=== PATIENT | female | born 1955 | race Caucasian/White ===

== ENCOUNTER 2017-03-20 07:13 | Emergency (ER) | payer OTHER ==
[~2017-03-20] VITALS: Ht 167.6 cm; Wt 61.3 kg
[2017-03-20] MEDS ORDERED: NORCO, ANEXSIA 5/325MG TABLET (HYDROcodone/ACETAMINOPHEN) PO ONE (09:00)
[2017-03-20] MEDS ORDERED: ONDANSETRON 4 MG ORAL DISINTEGRATING TAB (S0181) PO ONE (09:00)
[2017-03-20] MEDS ORDERED: KEFL500C17 PO (10:21)
[2017-03-20] MEDS ORDERED: PRED20TA PO (10:21)
[2017-03-20 10:26] VITALS: BP 123/71
== END 2017-03-20 11:48 | disposition home or self-care (01) ==
LOC: M ED 07:13
DX: L30.9 Dermatitis, unspecified (principal); L03.115 Cellulitis of right lower limb; L03.116 Cellulitis of left lower limb; L40.9 Psoriasis, unspecified; Z88.5 Allergy status to narcotic agent

== ENCOUNTER 2018-03-28 11:09 | Emergency (ER) | payer OTHER ==
[2018-03-28] MEDS: IBUPROFEN 600 MG TAB PO (12:02)
== END 2018-03-28 13:30 | disposition home or self-care (01) ==
LOC: M ED 11:09
DX: M25.462 Effusion, left knee (principal); F33.9 Major depressive disorder, recurrent, unspecified; Z88.5 Allergy status to narcotic agent
CPT/HCPCS: 73564

== ENCOUNTER 2019-08-13 14:57 | Inpatient (IN) | payer OTHER ==
[~2019-08-13] VITALS: Ht 167.6 cm; Wt 90.0 kg
[~2019-08-13 14:57] MED LIST: IBUP-1022 PO; KEFL500C17 PO; PRED20TA PO
[2019-08-13] MEDS ORDERED: CLOB0.0548 PO (15:07)
[2019-08-13 17:21] LABS: MEAN CORPUSCULAR HEMOGLOBIN 26.5 pg (27.0-33.0); MEAN CORPUSCULAR HGB CONC 30.3 g/dl (32.0-36.5); MEAN CORPUSCULAR VOLUME 87.5 fl (80.0-96.0); PLATELET COUNT, AUTOMATED 466 10^3/uL (150-450); RED BLOOD COUNT 3.77 10^6/uL (4.00-5.40); WHITE BLOOD COUNT 9.2 10^3/uL (4.0-10.0)
[2019-08-13 17:42] LABS: ERYTHROCYTE SEDIMENTATION RATE 101 mm/hr (0-30)
[2019-08-13 17:44] LABS: ALBUMIN 2.9 GM/DL (3.2-5.2); ALT/SGPT 16 U/L (12-78); BILIRUBIN,TOTAL < 0.1 MG/DL (0.2-1.0); BLOOD UREA NITROGEN 24 MG/DL (7-18); C REACTIVE PROTEIN QUANTITATIV 2.47 MG/DL (0.00-0.30); CALCIUM LEVEL 9.2 MG/DL (8.8-10.2); CARBON DIOXIDE LEVEL 28 MEQ/L (21-32); CHLORIDE LEVEL 109 MEQ/L (98-107); CREATININE FOR GFR 0.72 MG/DL (0.55-1.30); GLOMERULAR FILTRATION RATE > 60.0 (>45); GLUCOSE, FASTING 89 MG/DL (70-100); RHEUMATOID FACTOR QUANT 26.9 IU/ML (<15.0); SODIUM LEVEL 139 MEQ/L (136-145); TOTAL PROTEIN 7.5 GM/DL (6.4-8.2)
[2019-08-13] MEDS ORDERED: PIPERACILLIN/TAZOBACTAM SOD 3.375 GM in D5W MINI-BAG PLUS 50 ML IV ONE (18:15)
--- NOTE | 2019-08-13 19:39 | HPEPDOC ---
[facility] Medical History & Physical Date of Admission Aug 13, 2019 Date of Service: Aug 13, 2019 Attending Physician: FREEDOM KAM MD History and Physical TIME OF SERVICE: 8:24 PM CHIEF COMPLAINT: Sent from safety patrol officer office HISTORY OF PRESENT ILLNESS: This is 63-year-old female that was sent from her safety patrol officer office for management of pyoderma of the lower extremities; maggots were observed infesting the wounds the office. The patient denies having nausea, vomiting, fevers or chills. REVIEW OF SYSTEMS: 12 point review of systems negative except as listed in HPI PAST MEDICAL/ SURGICAL HISTORY: Eczema Psoriasis Anxiety Depression Surgery Tonsillectomy SOCIAL HISTORY: She does not smoke FAMILY HISTORY: There is a family history of psychiatric problems ALLERGIES: Please see below. HOME MEDICATIONS: Please see below. PHYSICAL EXAMINATION: VITAL SIGNS: Please see below. GEN: well-nourished / well developed/ NAD INTEGUMENT: both lower extremities are wrapped in dressings / the wounds are foul-smelling / her toenails are very long HEENT: mucus membranes moist and pink CVS: RRR/NMRG/ she has bilateral lower extremity edema LUNGS: lungs are clear to auscultation bilaterally on room air ABDOMEN: soft & not tender with palpation NEURO: CN 2-12 are grossly intact / speech is not dysarthric PSYCH: alert and oriented / able to understand and follow all command LABORATORY DATA: See below. MICROBIOLOGY: Please see below. ASSESSMENT: Ms. Bermeo is a 63-year-old female with a history of anxiety, depression, eczema & psoriasis, who is admitted for management of BLE pyoderma. PLAN: 1. Pyoderma of both lower extremities. This possible that her psoriasis predisposing her to this condition. Per discussion with the FUEL HOUSE ATTENDANT maggots were not visualized here. Plan: Admit to medical floor/switch from topical clobetasol to IV steroids/continue Zosyn /metronidazole cream to reduce odor associated with wounds/ follow up blood and wound cultures / dermatology & wound care consults in the morning /she is on contact precautions for now, if maggots are found they should be sent to the pathology lab for analysis 2. Tachycardia, likely due to dehydration. Her potassium is within normal limits. - Plan: IV fluids / follow-up magnesium 3. Normocytic anemia. Likely due to anemia of chronic disease. - Plan: Follow-up reticulocyte count and iron panel 4. Eczema/psoriasis. - Plan follow-up with dermatology 5. Obesity with BMI 31.5 of [facility] care. - Plan: f/u A1C/ she can f/u w PCP for STOP BANG questionnaire & director of slot operations consult DVT PROPHYLAXIS: Heparin DISPOSITION: Home with home RN vs placement after more than 2 midnight's stay Vital Signs Vital Signs Date Time Temp Pulse Resp B/P (MAP) Pulse Ox O2 Delivery O2 Flow Rate FiO2 08/13/19 18:46 112 157/103 (121) 98 08/13/19 14:57 98.9 20 Room Air Laboratory Data Labs 24H Laboratory Tests 2 08/13/19 17:00: Nucleated Red Blood Cells % (auto) 0.0, Erythrocyte Sedimentation Rate 101H, Anion Gap 2L, Glomerular Filtration Rate > 60.0, Calcium Level 9.2, Total Bilirubin < 0.1L, Aspartate Amino Transf (AST/SGOT) 17, Alanine Aminotransferase (ALT/SGPT) 16, Alkaline Phosphatase 75, C-Reactive Protein, Quantitative 2.47H, Total Protein 7.5, Total Protein (PEP) 7.5, Albumin 2.9L, Albumin/Globulin Ratio 0.63L, Rheumatoid Factor 26.9H CBC/BMP Laboratory Tests 08/13/19 17:00 Microbiology Microbiology 08/13/19 Blood Culture, Received Pending 08/13/19 Blood Culture, Received Pending Home Medications Scheduled Clobetasol Propionate/Emoll (Clobetasol Emollient 0.05% Crm) 0.05% 15GM Cream..g., 1 APPLIC PO BID APPLY TO LEGS Allergies Coded Allergies: codeine (Verified Adverse Reaction, Mild, VOMITS, 08/13/19) A-FIB/CHADSVASC A-FIB History Current/History of A-Fib/PAF?: No Current PO Anticoag Therapy: No FREEDOM KAM MD Aug 13, 2019 19:39
[2019-08-13] MEDS ORDERED: MAALOX 30 ML SUSP *UDC PO PRN (19:45)
[2019-08-13] MEDS ORDERED: methylPREDNISolone INJ 125 MG/2 ML VIAL (J2930) IV ONE (19:45)
[2019-08-13] MEDS ORDERED: MOM 30ML SUSPENSION UDC PO PRN (19:45)
[2019-08-13] MEDS: ACETAMINOPHEN TAB 650MG DOSE (2X325MG) PO PRN (20:36)
[2019-08-13 21:12] VITALS: BP 155/89
[2019-08-13] MEDS: DOCUSATE SODIUM 100 MG CAP PO SCH (22:16)
[2019-08-14] VITALS (7 sets, daily range): BP systolic 123–155; BP diastolic 64–94
[2019-08-14] MEDS: PIPERACILLIN/TAZOBACTAM SOD 3.375 GM in D5W MINI-BAG PLUS 50 ML IV SCH ×3 (00:52→17:12)
[2019-08-14] MEDS: NS 1,000 ML IV SCH ×2 (03:46→13:47)
[2019-08-14] MEDS: HEPARIN SOD (PORCINE) 5000 UNITS/ML VIAL (J1644 PER 1000UNITS) SC SCH ×3 (05:31→21:40)
[2019-08-14 06:34] LABS: HEMATOCRIT 31.8 % (36.0-47.0); HEMOGLOBIN 9.7 g/dl (12.0-15.5); MEAN CORPUSCULAR HEMOGLOBIN 26.3 pg (27.0-33.0); MEAN CORPUSCULAR HGB CONC 30.5 g/dl (32.0-36.5); MEAN CORPUSCULAR VOLUME 86.2 fl (80.0-96.0); PLATELET COUNT, AUTOMATED 406 10^3/uL (150-450); RED BLOOD COUNT 3.69 10^6/uL (4.00-5.40); WHITE BLOOD COUNT 8.2 10^3/uL (4.0-10.0)
[2019-08-14 06:48] LABS: HEMOGLOBIN A1c 5.6 %
[2019-08-14 07:00] LABS: BLOOD UREA NITROGEN 18 MG/DL (7-18); CARBON DIOXIDE LEVEL 26 MEQ/L (21-32); CHLORIDE LEVEL 108 MEQ/L (98-107); CREATININE FOR GFR 0.78 MG/DL (0.55-1.30); FERRITIN 9 NG/ML (8-252); GLOMERULAR FILTRATION RATE > 60.0 (>45); GLUCOSE, FASTING 146 MG/DL (70-100); IRON (FE) 14 UG/DL (50-170); PERCENT SATURATION 3.9 % (13.2-45.0); POTASSIUM SERUM 3.9 MEQ/L (3.5-5.1); SODIUM LEVEL 140 MEQ/L (136-145); TOTAL IRON BINDING CAPACITY 362 UG/DL (250-450)
[2019-08-14] MEDS ORDERED: methylPREDNISolone INJ 125 MG/2 ML VIAL (J2930) IV SCH (09:00)
[2019-08-14] MEDS ORDERED: methylPREDNISolone 1,000 MG, VIAL MATE ADAPTER 1 EACH in D5W 250 ML IV SCH (09:00)
[2019-08-14] MEDS: DOCUSATE SODIUM 100 MG CAP PO SCH ×2 (09:21→21:00)
[2019-08-14 11:40] LABS: ALBUMIN 2.7 GM/DL (3.2-5.2); ALT/SGPT 18 U/L (12-78); BILIRUBIN,DIRECT < 0.1 MG/DL (0.0-0.2); BILIRUBIN,TOTAL 0.2 MG/DL (0.2-1.0); RHEUMATOID FACTOR QUANT 27.6 IU/ML (<15.0); TOTAL PROTEIN 7.3 GM/DL (6.4-8.2)
[2019-08-14 12:06] LABS: HEPATITIS B SURFACE ANTIGEN NEGATIVE (NEGATIVE)
--- NOTE | 2019-08-14 12:27 | IPN ---
DATE: 08/14/2019 SUBJECTIVE: Patient has no pain. She says that her lower extremity has continued to have increasing foul smell. Discharged is unchanged. Some purulence. Patient was seen by Dr. Cosme, pattern perforating machine operator, office number [phone]. She was due to see [place] pattern perforating machine operator but not until mid August. Patient denies any fever or chills overnight. Says that she has been trying to manage her wounds at home because it is difficult to get into a specialist office. She had been wrapping it with plastic bags. Uses scissors to clean it off and has been cutting off tissue at home on her own without supervision. Patient is tearful at the bedside and would like and would like to "be helped". Patient has been started on Zosyn overnight. No fever or chills. No white count. Sed rate with elevated MCRP on examination. Per Dr. Vasquez, pattern perforating machine operator rhinestone setter, no need for inpatient consult as patient currently is infected. He recommended discontinuous of IV Solu-Medrol while the patient has an acute infection. To continue with intravenous Zosyn and wound care and to have the patient followup with him in the office next week as previously scheduled for biopsy. He said that even with biopsy, it would take 2 weeks to get the results and the treatment and management would be the same. He recommends discontinuation of inpatient consult and for outpatient followup as previously scheduled. Vital signs: Temperature 97, pulse 82, respiratory rate 20, blood pressure 154/94, 99% on room air. Generally, patient appears older than her stated age, disheveled. No jugular venous distention (JVD). No thyromegaly. No cervical lymphadenopathy. Able to speak in full sentences. No conversational dyspnea. Lungs are clear to auscultation. No wheezing, rales or rhonchi. Heart: S1, S2, sinus rhythm. Abdomen is soft, nontender, nondistended. Positive bowel sounds. Extremities have significant erythema. Some tenderness. Purulent drainage foul smelling wounds with onychomycosis of long and unkempt toenails with scaly in the anterior medial aspect, weeping and malodorous discharge some erythematous areas and dry skin. There is +1 edema. LABORATORY DATA: White count 8.2, hemoglobin 9.7, hematocrit 31, platelet count 406. Sodium 140, potassium 3.9, chloride 108, bicarbonate 26, BUN 18, creatinine 0.78, glucose 146, A1c 5.6. Wound culture: Two sets of blood cultures are pending. Imaging studies are pending. ASSESSMENT/PLAN: This is a 63-year-old female with history of psoriasis, eczema, anxiety and depression, prior tonsillectomy and has had several-month history of lower extremity lesions with some purulence seen by Dr. Cosme, pattern perforating machine operator from [place] phone number [phone] and was diagnosed with acute cellulitis and sent to the emergency room for admission for intravenous antibiotics. Patient otherwise denies any nausea or vomiting, fevers or chills. She was started on intravenous. IMPRESSION: 1. Bilateral lower extremity cellulitis and abscess. Obtain imaging studies as well as intravenous antibiotics with broad-spectrum coverage with Zosyn intravenous for 7 days. Wound care consult has been made. Dr. Ba has been consulted for telemedicine for wound care. Patient will need wound care referral as outpatient and to keep her previously scheduled appointment with Dr. Vasquez in the office next week at the [place] [facility] at [facility]. 2. Anxiety and depression: She is resumed on her home medications. 3. Deep venous thrombosis (DVT) prophylaxis with subcu heparin. [facility]
[2019-08-14 12:32] LABS: HEPATITIS B CORE ANTIBODY IGM NEGATIVE (NEGATIVE); HEPATITIS C VIRUS ABY INDEX 0.3 INDEX (<0.8)
[2019-08-14 12:33] LABS: HEPATITIS B CORE ANTIBODY IGM NEGATIVE (NEGATIVE); HEPATITIS C VIRUS ABY INDEX 0.3 INDEX (<0.8)
[2019-08-14 12:37] LABS: HEPATITIS A ANTIBODY IGM NEGATIVE (NEGATIVE)
[2019-08-14] MEDS ORDERED: traMADol 50 MG TAB PO PRN ×2 (16:30)
[2019-08-14] MEDS ORDERED: HYDROMORPHONE HCL 0.5 MG/ 0.5 ML SYRINGE (J1170 PER 1) IV ONE (16:30)
[2019-08-14] MEDS ORDERED: KETOROLAC 30 MG/ML VIAL (J1885) IV ONE (16:30)
[2019-08-14] MEDS ORDERED: ISOVUE-370 76% 100ML VIAL (Q9967) As Ordered ONE (17:02)
--- NOTE | 2019-08-14 18:09 | CR ---
DATE OF CONSULTATION: 08/14/2019 via [facility] CONSULTATION REPORT FOR: Dr. Roxann Rodrigues REASON FOR CONSULTATION: Regarding treatment recommendations for bilateral lower extremity wounds. HISTORY OF PRESENT ILLNESS: A 63-year-old female admitted after presenting to the emergency room with bilateral lower extremity wounds, diffuse in nature from the malleolus area to just below the popliteal level. The patient has been symptomatic for more than two weeks. She has not sought medical treatment and has not been worked up as to etiology according to the patient. By history, these wounds were infested with maggots and the patient appeared unkempt. Her social history is questionable and social service has been asked to intervene. The patient is ambulatory but weak and presented to the emergency room for treatment and evaluation as she has been unable to care for herself. When seen, the patient is in no acute distress, is afebrile with a slightly elevated white count. There are bilateral, diffuse erythematous superficial wounds involving both lower extremities from the supramalleolar area to just below the popliteal Regions with areas of patchy scaly denuded skin. There is bilateral gravitational dependent edema and weeping of serous exudate the wounds. At present, the differential diagnosis exists between bilateral venous stasis disease, vasculitis or possibly psoriasis that has existed but not been adequately treated. At present, initial treatment will be wound cleanser with Vashe using a 4x4 to mildly scrub and remove any devitalized tissue. These wounds should then be covered with foam dressings, secured with Kerlix and mild compression applied with a Coban wrap from the metatarsal level to the popliteal level. Wounds should be redressed on a daily basis and the patient should be in Trendelenburg position when in bed. The patient may be out of bed in ambulation is encouraged. Dietary consult and dietary supplements should be added such as Charli and Ensure. Complete blood work has been drawn and is pending and I requested an antinuclear antibody (KASHIF) to be added. This in addition to a sedimentation rate and C-reactive protein would be useful to evaluate for vasculitis. Punch biopsies of the wound at the periphery including normal periwound tissue and the edge of the wound itself should be performed. . Bilateral venous ultrasounds both standing and supine should be performed to evaluate her venous status. A dermatological evaluation has also been ordered. These wounds do not appear infected but colonized and therefore antibiotics are not indicated. Vashe, wound cleanser will aid in controlling wound odor and cleaning the wounds and periwound Prior to discharge, we requested that the patient be scheduled for an appointment for followup at our clinic to further treat and evaluate her wounds in general condition. general condition. As the treatment for vasculitis differs from psoriasis which differs from venous stasis disease, it is important to further evaluate her condition, and arrived at the correct diagnosis. CASSIE
--- NOTE | 2019-08-14 18:42 | REPVR ---
PROCEDURE INFORMATION: Exam: CT Right and Left Lower Extremity With Contrast; Lower Leg Exam date and time: 08/14/2019 6:05 PM Age: 63 years old Clinical indication: Cellulitis; Lower leg; Bilateral; Additional info: Cellulitis R/O fasciitis TECHNIQUE: Imaging protocol: CT of the Right and Left lower extremity with intravenous contrast was performed. Exam focused on the lower leg. Radiation optimization: All CT scans at this facility use at least one of these dose optimization techniques: automated exposure control; mA and/or kV adjustment per patient size (includes targeted exams where dose is matched to clinical indication); or iterative reconstruction. Contrast material: ISOVUE 370; Contrast volume: 100 ml; Contrast route: IV; COMPARISON: CR Knee, complete 03/28/2018 11:45 AM FINDINGS: Bones/joints: Unremarkable. Soft tissues: Bilateral skin thickening and subcutaneous edema, left greater than right, beginning at the proximal 1/3 of the calf extending to the ankle and hindfoot region. Findings consistent with cellulitis. The fluid accumulation is demonstrated adjacent to the musculature of the calf laterally and posteriorly, findings which may indicate the presence of fasciitis. No evidence of myonecrosis. No abnormal enhancement. Vasculature: Non thrombosed superficial varicosities demonstrated bilaterally. IMPRESSION: Bilateral skin thickening and subcutaneous edema, left greater than right, beginning at the proximal 1/3 of the calf extending to the ankle and hindfoot region. Findings consistent with cellulitis. The fluid accumulation is demonstrated adjacent to the musculature of the calf laterally and posteriorly, findings which may indicate the presence of fasciitis. No evidence of myonecrosis. No focal abscess demonstrated. Electronically signed by: Miguel Linares On 08/14/2019 18:42:17 PM
[2019-08-15] MEDS: NS 1,000 ML IV SCH ×3 (00:20→17:19)
[2019-08-15] MEDS: PIPERACILLIN/TAZOBACTAM SOD 3.375 GM in D5W MINI-BAG PLUS 50 ML IV SCH ×3 (00:20→17:19)
[2019-08-15] MEDS: HEPARIN SOD (PORCINE) 5000 UNITS/ML VIAL (J1644 PER 1000UNITS) SC SCH ×3 (05:10→21:17)
[2019-08-15 05:45] VITALS: BP 130/69
[2019-08-15 08:45] VITALS: BP 160/102
[2019-08-15] MEDS: DOCUSATE SODIUM 100 MG CAP PO SCH ×2 (09:57→20:10)
--- NOTE | 2019-08-15 12:00 | CR ---
DATE OF CONSULTATION: 08/15/2019 BRIEF HISTORY OF PRESENT ILLNESS: The patient is a 63-year-old female who was sent from her intelligence support officer's office for infection of the lower extremities with maggots in the wound. She presents to the emergency room for additional treatment. She was admitted on the and I am asked to see her today because of a CT scan which showed edema in the deep tissue planes. Essentially, the patient has had lower extremity wounds that have been going on for quite awhile now and has not really sought any medical treatment. She has not been worked up for these and presents with these open wounds with significant bilateral edema and venous stasis disease bilaterally. PAST MEDICAL HISTORY: Significant for history of eczema, psoriasis, anxiety, and depression. SURGICAL HISTORY: Tonsillectomy. MEDICATIONS: Some cream to the lower extremities, but otherwise no medications. PHYSICAL EXAMINATION: Reveals a 63-year-old female who looks stated age. HEENT is unremarkable. Neck: Supple without adenopathy. Lungs are clear anteriorly. Heart is regular. Abdomen: Soft. What I see of the lower extremities is she has bilateral venous stasis disease and starting from the mid calf/anterior christensen area down is significant denuded skin, but with significant edema and superficial ulcerations, some extending into the dermis and possibly into the subcutaneous tissue, but no evidence of abscess or purulent area. She has a fair bit of drainage with this area at this time and does not have significant pain or discomfort on passive or active movement of her lower extremities with a good capillary refill bilaterally. IMPRESSION AND PLAN: The patient has evidence of normal white count, evidence of localized infection without evidence of fasciitis on clinical exam. However, there is some edema of the deep tissue which is consistent with her physical exam and less likely an infectious process. I would recommend that we elevate her leg, continue with compressive therapy and continue with current dressing changes. Overall, I anticipate given that a great deal of edema has improved over the last 24-48 hours that continuing to have this improvement over the next couple days will probably resolve her issues associated with these lower extremity ulcers relatively well. I anticipate this is a multi factorial etiology for this with most likely the primary etiology is venous stasis disease and secondary some psoriasis of the lower extremities. However, she can plan on followup with the wound clinic when she is discharged and also follow up with dermatology as needed as well.
[2019-08-15 12:03] LABS: ALBUMIN 3.14 GM/DL (3.29-5.55)
[2019-08-15 12:04] LABS: ALBUMIN % 41.9 % (55.8-66.1); ALPHA-1-GLOBULIN % 6.2 % (2.9-4.9); ALPHA-1-GLOBULINS 0.47 GM/DL (0.17-0.41); ALPHA-2-GLOBULINS 0.89 GM/DL (0.42-0.99); ALPHA-2-GLOBULINS % 11.9 % (7.1-11.8); BETA-1-GLOBULINS 0.63 GM/DL (0.28-0.60); BETA-1-GLOBULINS % 8.4 % (4.7-7.2); BETA-2-GLOBULINS 0.73 GM/DL (0.19-0.55); BETA-2-GLOBULINS % 9.7 % (3.2-6.5); GAMMA GLOBULIN % 21.9 % (11.1-18.8); GAMMA GLOBULINS 1.64 GM/DL (0.65-1.58)
[2019-08-15 13:35] VITALS: BP 122/81
--- NOTE | 2019-08-15 17:21 | REP ---
Bilateral lower extremity deep vein duplex ultrasound: The deep veins demonstrate normal compression, normal Doppler color flow and normal Doppler waveforms with respiration augmentation from the popliteal veins to the common femoral veins bilaterally. Impression: There is no deep vein thrombus in the right or left lower extremities. The Lower Extremity Venous Reflux: Positive reflux is greater than 0.5 seconds. Right Reflux Left Reflux CFV Reflux yes no Ant. Acc. GSV Present yes no Reflux yes no Greater saph/fem junction 6.6 mm yes 7 mm no Greater saph vein mid thigh 5.6 mm yes 6 mm No Greater saph vein at knee 5.7 mm yes 4.0 mm no SFV PROX no no SFV MID no no SFV DISTAL no no POPLITEAL VEIN no no LSV 5 mm no 5 mm No Impression: Right lower extremity: There is reflux in the distal and the proximal greater saphenous vein. Left lower extremity: No reflux is identified. Electronically Signed by Sean Plummer MD 08/15/2019 05:13 P
[2019-08-15 22:00] VITALS: BP 117/80
[2019-08-16] MEDS: PIPERACILLIN/TAZOBACTAM SOD 3.375 GM in D5W MINI-BAG PLUS 50 ML IV SCH (00:46)
[2019-08-16 06:00] VITALS: BP 148/88
[2019-08-16] MEDS: HEPARIN SOD (PORCINE) 5000 UNITS/ML VIAL (J1644 PER 1000UNITS) SC SCH ×3 (06:17→21:09)
[2019-08-16] MEDS ORDERED: FUROSEMIDE 40 MG/4 ML VIAL (J1940) IV ONE (07:00)
[2019-08-16 07:19] LABS: BASO # 0.1 10^3/uL (0.0-0.2); BASO % 0.5 % (0.0-1.0); EOS # 0.3 10^3/uL (0.0-0.5); EOS % 2.6 % (0.0-3.0); HEMATOCRIT 31.2 % (36.0-47.0); HEMOGLOBIN 9.4 g/dl (12.0-15.5); LYMPH # 1.7 10^3/uL (1.5-5.0); LYMPH % 15.2 % (24.0-44.0); MEAN CORPUSCULAR HGB CONC 30.1 g/dl (32.0-36.5); MEAN CORPUSCULAR VOLUME 86.2 fl (80.0-96.0); MONO # 0.8 10^3/uL (0.0-0.8); MONO % 6.8 % (0.0-5.0); NEUTROPHILS # 8.2 10^3/uL (1.5-8.5); NEUTROPHILS % 74.3 % (36.0-66.0); PLATELET COUNT, AUTOMATED 378 10^3/uL (150-450); RED BLOOD COUNT 3.62 10^6/uL (4.00-5.40)
[2019-08-16 07:37] LABS: ERYTHROCYTE SEDIMENTATION RATE 85 mm/hr (0-30)
[2019-08-16 07:46] LABS: ALBUMIN 2.3 GM/DL (3.2-5.2); ALT/SGPT 15 U/L (12-78); BILIRUBIN,TOTAL 0.3 MG/DL (0.2-1.0); BLOOD UREA NITROGEN 12 MG/DL (7-18); C REACTIVE PROTEIN QUANTITATIV 2.28 MG/DL (0.00-0.30); CALCIUM LEVEL 8.6 MG/DL (8.8-10.2); CARBON DIOXIDE LEVEL 28 MEQ/L (21-32); CHLORIDE LEVEL 108 MEQ/L (98-107); CREATININE FOR GFR 0.67 MG/DL (0.55-1.30); GLOMERULAR FILTRATION RATE > 60.0 (>45); GLUCOSE, FASTING 86 MG/DL (70-100); POTASSIUM SERUM 3.9 MEQ/L (3.5-5.1); SODIUM LEVEL 140 MEQ/L (136-145)
[2019-08-16] MEDS: DOCUSATE SODIUM 100 MG CAP PO SCH ×2 (09:10→21:10)
[2019-08-16] MEDS: DOXYCYCLINE HYCLATE 100 MG in D5W MINI-BAG PLUS 100 ML IV SCH ×2 (09:12→21:16)
[2019-08-16] MEDS: LevoFLOXacin 750 MG TABLET PO SCH (09:49)
[2019-08-16] MEDS ORDERED: KETOROLAC 30 MG/ML VIAL (J1885) IV ONE (10:15)
--- NOTE | 2019-08-16 10:35 | IPN ---
DATE: 08/16/2019 Patient still complains of pain, 8/10 pain when she starts to move around and 10/10 pain when the dressing is being changed. She has not passed a home safety evaluation. Still on IV antibiotics. Afebrile. No chills. No nausea or vomiting. Tolerating her diet well. Sleeping well. No shortness of breath, chest pain or pressure. Vital Signs: Temperature 98.3 pulse 90, respiratory rate 18, blood pressure 148/80, 97% on room air. Generally, patient is awake, alert, oriented times three, answering questions appropriately. Lungs are clear to auscultation. No wheezing, rales or rhonchi. Heart: S1, S2, sinus rhythm. Abdomen is soft, nontender, nondistended. Positive bowel sounds. Extremities: Positive 2+ pitting edema with chronic venous ulcers, erythema, tenderness and serous drainage. LABORATORY DATA: White count 11, hemoglobin 9, hematocrit 31, platelet count 378. Sodium 140, potassium 3.9, chloride 108, bicarbonate 28, BUN 12, creatinine 0.67, glucose of 86. MICROBIOLOGY: Wound culture Proteus and Staphylococcus aureus, Morganella. Staphylococcus aureus is sensitive to tetracycline. Morganella and Proteus are both sensitive to Levaquin. ASSESSMENT AND PLAN: This is a 63-year-old female with history of psoriasis, eczema, anxiety, depression, prior tonsillectomy has had several-month history of lower extremity serous and purulent drainage with self-debridement with scissors and wrapping her legs in plastic bags at home and had seen Dr. Cosme, a coastal tug mate from [place], phone number [phone], was diagnosed with cellulitis and sent to the emergency room (ER) due to concerns for acute infection after seeing maggots coming out of the wounds. Patient was admitted and placed on intravenous Zosyn. Culture results with Morganella and Proteus as well as Staphylococcus aureus sensitive to Levaquin and tetracycline. IMPRESSION: 1. Bilateral lower extremity cellulitis in the setting of chronic venous insufficiency ulcers. Patient had been on IV Zosyn now transitioned to Levaquin and tetracycline. CT was concerning for fasciitis. Patient was evaluated by Dr. Asher; recommended continued wound care as outpatient and continue antibiotics and wound care during the hospital stay. 2. History of psoriasis and eczema. Patient has an appointment with Dr. Vasquez, Dermatology as outpatient, per recommendations by Dr. Matamoros, during this admission, Dr. Vasquez did not feel that the patient required an inpatient consultation as well as a biopsy which all can be done as outpatient. He agreed with discontinuation of steroids as this does not appear to be a pyoderma gangrenosum and agreed with continuing with IV antibiotics, wound care consult Dr. Ba's referral and to followup with him in the office. 3. Anxiety/depression. Resumed on home medications. 4. Deep venous thrombosis (DVT) prophylaxis with subcu heparin. 5. Pain control. Patient prefers to be on [id number] medications and physical therapy (PT) has been consulted. CASSIE
[2019-08-16] MEDS: ACETAMINOPHEN 500 MG TAB PO SCH ×2 (11:20→21:08)
[2019-08-16] MEDS: traMADol 50 MG TAB PO SCH ×2 (13:15→17:09)
[2019-08-16 14:00] VITALS: BP 145/88
[2019-08-16] MEDS: IBUPROFEN 400 MG TAB PO SCH (17:09)
[2019-08-16 21:30] VITALS: BP 107/67
[2019-08-17] MEDS: traMADol 50 MG TAB PO SCH ×6 (00:23→23:56)
[2019-08-17] MEDS: HEPARIN SOD (PORCINE) 5000 UNITS/ML VIAL (J1644 PER 1000UNITS) SC SCH ×3 (06:05→22:06)
[2019-08-17] MEDS: LevoFLOXacin 750 MG TABLET PO SCH (06:05)
[2019-08-17 06:34] VITALS: BP 160/96
[2019-08-17] MEDS: DOCUSATE SODIUM 100 MG CAP PO SCH ×2 (08:08→22:05)
[2019-08-17] MEDS: IBUPROFEN 400 MG TAB PO SCH ×3 (08:08→18:01)
[2019-08-17] MEDS: ACETAMINOPHEN 500 MG TAB PO SCH ×2 (08:08→22:06)
[2019-08-17 08:37] LABS: BASO % 0.5 % (0.0-1.0); EOS # 0.5 10^3/uL (0.0-0.5); HEMATOCRIT 31.1 % (36.0-47.0); HEMOGLOBIN 9.3 g/dl (12.0-15.5); LYMPH # 1.4 10^3/uL (1.5-5.0); LYMPH % 16.2 % (24.0-44.0); MEAN CORPUSCULAR HEMOGLOBIN 26.1 pg (27.0-33.0); MEAN CORPUSCULAR HGB CONC 29.9 g/dl (32.0-36.5); MEAN CORPUSCULAR VOLUME 87.1 fl (80.0-96.0); MONO # 0.8 10^3/uL (0.0-0.8); MONO % 8.7 % (0.0-5.0); NEUTROPHILS # 5.8 10^3/uL (1.5-8.5); NEUTROPHILS % 67.1 % (36.0-66.0); PLATELET COUNT, AUTOMATED 358 10^3/uL (150-450); RED BLOOD COUNT 3.57 10^6/uL (4.00-5.40); WHITE BLOOD COUNT 8.6 10^3/uL (4.0-10.0)
[2019-08-17 09:00] LABS: BLOOD UREA NITROGEN 18 MG/DL (7-18); CALCIUM LEVEL 8.2 MG/DL (8.8-10.2); CARBON DIOXIDE LEVEL 31 MEQ/L (21-32); CHLORIDE LEVEL 108 MEQ/L (98-107); CREATININE FOR GFR 0.82 MG/DL (0.55-1.30); GLOMERULAR FILTRATION RATE > 60.0 (>45); GLUCOSE, FASTING 94 MG/DL (70-100); POTASSIUM SERUM 3.9 MEQ/L (3.5-5.1); SODIUM LEVEL 143 MEQ/L (136-145)
[2019-08-17] MEDS: DOXYCYCLINE HYCLATE 100 MG TAB PO SCH ×2 (09:24→22:05)
[2019-08-17 14:00] VITALS: BP 140/70
--- NOTE | 2019-08-17 19:38 | IPN ---
DATE: 08/17/2019 The patient remains afebrile. No chills. Describes the pain as 5 out of 10 when she tries to ambulate. The patient has now passed a home safety evaluation. No complaints of chills. Wound culture grew Proteus and Staphylococcus aureus, which is methicillin sensitive Staphylococcus aureus (MSSA), sensitive to oxacillin. The patient is currently on oral doxycycline and Levaquin. PHYSICAL EXAMINATION: VITAL SIGNS: Temperature 97.9, pulse 83, respiratory rate 17, blood pressure 160/96, 98% on room air. GENERAL: The patient is awake, alert, oriented times three. Answers questions appropriately. LUNGS: Clear to auscultation. No wheezing or rales or rhonchi. HEART: S1, S2. Sinus rhythm. ABDOMEN: Soft, nontender, nondistended. EXTREMITIES: The patient has chronic venous insufficiency, 2+ pitting edema with erythema, tenderness, and multiple ulcers, serous drainage, onychomycoses and long toenails. LABORATORY DATA: White count 8.6, hemoglobin 9.3, hematocrit 31, platelet count 358. Sodium 143, potassium 3.9, chloride 108, bicarbonate 31, BUN 18, creatinine 0.8, glucose 94. Microbiology: Left leg wound culture with Morganella, Proteus, and Staphylococcus aureus sensitive to oxacillin. ASSESSMENT AND PLAN: This is a 63-year-old female with a history of chronic venous insufficiency who has been self debriding at home with her chronic venous ulcers, presented with a history of psoriasis, eczema, anxiety, depression, prior tonsillectomy, 4 month history of serous and purulent drainage with self debridement with scissors at home and wrapping her legs in plastic bags. Saw Dr. Cosme, optimization specialist from [place], phone number is [phone], and was found to have maggots. Pictures were taken and she was sent to the emergency room for further management. THe patient was admitted and placed on intravenous Zosyn. Cultures grew out Morganella, Proteus, and Staphylococcus aureus sensitive to Levaquin and tetracycline. She was subsequently changed to oral doxycycline and Levaquin. ACTIVE ISSUES: 1. Bilateral lower extremity cellulitis in the setting of chronic venous insufficiency ulcers and chronic eczema and psoriasis. The patient was initially admitted and started on intravenous Zosyn and transitioned to oral Levaquin and tetracycline. Wound cultures grew out Morganella, Staphylococcus aureus, and Proteus. She has been afebrile with decreasing white count back to normal. Wound care management per Dr. Ba. The patient has passed a home safety evaluation, awaiting acute rehabilitation recommendations. Due to CT showing slight fluid collection, Dr. Asher was consulted to rule out fasciitis. Recommendations are to continue with antibiotics. No need for exploration in the operating room, as the patient does not have fasciitis and to continue with wound care as an outpatient. 2. History of psoriasis and eczema with underlying chronic venous insufficiency ulcers. The patient has an appointment with [facility], which she will followup with next week. She had seen Dr. Cosme, we will obtain records from her office. The patient was initially started on Solu-Medrol for presumed pyoderma gangrenosum, which has been discontinued. Per optimization specialist Dr. Vasquez, he recommended continuation of IV antibiotics, biopsy as an outpatient, and continue with wound care per Dr. Ba. 3. Anxiety and depression. Resumed on home medications. 4. Deep vein thrombosis (DVT) prophylaxis. Subcutaneous heparin. 5. Pain control. Improved. Currently on as needed pain medications. DISPOSITION: Awaiting physical therapy clearance or acute rehabilitation acceptance. The patient is medically stable currently on oral antibiotics and may be discharged to acute rehabilitation or home with services. Awaiting PT clearance. [facility]
[2019-08-17 22:00] VITALS: BP 112/72
[2019-08-18 05:00] VITALS: BP 123/74
[2019-08-18] MEDS: LevoFLOXacin 750 MG TABLET PO SCH (05:15)
[2019-08-18] MEDS: traMADol 50 MG TAB PO SCH ×4 (05:15→23:53)
[2019-08-18] MEDS: HEPARIN SOD (PORCINE) 5000 UNITS/ML VIAL (J1644 PER 1000UNITS) SC SCH ×3 (05:15→21:33)
[2019-08-18] MEDS ORDERED: TRAM50TA2 PO (07:30)
[2019-08-18] MEDS ORDERED: LEVA750T7 PO (07:30)
[2019-08-18] MEDS ORDERED: ACET-683 PO (07:30)
[2019-08-18] MEDS ORDERED: IBUP40TA PO (07:30)
[2019-08-18] MEDS ORDERED: DOXY100T PO (07:30)
[2019-08-18 08:06] LABS: BASO # 0.1 10^3/uL (0.0-0.2); BASO % 0.7 % (0.0-1.0); EOS # 0.5 10^3/uL (0.0-0.5); HEMATOCRIT 34.6 % (36.0-47.0); HEMOGLOBIN 10.3 g/dl (12.0-15.5); LYMPH # 1.3 10^3/uL (1.5-5.0); LYMPH % 10.4 % (24.0-44.0); MEAN CORPUSCULAR HEMOGLOBIN 26.1 pg (27.0-33.0); MEAN CORPUSCULAR HGB CONC 29.8 g/dl (32.0-36.5); MEAN CORPUSCULAR VOLUME 87.8 fl (80.0-96.0); MONO # 0.7 10^3/uL (0.0-0.8); MONO % 5.5 % (0.0-5.0); NEUTROPHILS # 9.4 10^3/uL (1.5-8.5); NEUTROPHILS % 77.3 % (36.0-66.0); RED BLOOD COUNT 3.94 10^6/uL (4.00-5.40); WHITE BLOOD COUNT 12.2 10^3/uL (4.0-10.0)
[2019-08-18 08:23] LABS: PLATELET COUNT, AUTOMATED 471 10^3/uL (150-450)
[2019-08-18 08:30] LABS: BLOOD UREA NITROGEN 19 MG/DL (7-18); C REACTIVE PROTEIN QUANTITATIV 3.31 MG/DL (0.00-0.30); CALCIUM LEVEL 9.5 MG/DL (8.8-10.2); CARBON DIOXIDE LEVEL 28 MEQ/L (21-32); CHLORIDE LEVEL 107 MEQ/L (98-107); CREATININE FOR GFR 0.91 MG/DL (0.55-1.30); GLOMERULAR FILTRATION RATE > 60.0 (>45); GLUCOSE, FASTING 129 MG/DL (70-100); SODIUM LEVEL 140 MEQ/L (136-145)
[2019-08-18] MEDS: DOCUSATE SODIUM 100 MG CAP PO SCH ×2 (08:35→21:34)
[2019-08-18] MEDS: IBUPROFEN 400 MG TAB PO SCH ×3 (08:36→17:24)
[2019-08-18] MEDS: ACETAMINOPHEN 500 MG TAB PO SCH ×2 (08:36→21:34)
[2019-08-18] MEDS: DOXYCYCLINE HYCLATE 100 MG TAB PO SCH ×2 (08:36→21:34)
[2019-08-18 08:41] LABS: ERYTHROCYTE SEDIMENTATION RATE 97 mm/hr (0-30)
[2019-08-18 14:00] VITALS: BP 123/74
--- NOTE | 2019-08-18 14:28 | IPNPDOC ---
Date Seen The patient was seen on 08/18/19. Progress Note SUBJECTIVE: pt still c/o soreness in b/l LE despite scheduled pain meds. She has not passed HSE and unsafe for discharge. afebrile no chills. on po antibiotics. OBJECTIVE: VITALS: PLS SEE BELOW Generally, patient is awake, alert, oriented times three, answering questions appropriately. Lungs are clear to auscultation. No wheezing, rales or rhonchi. Heart: S1, S2, sinus rhythm. Abdomen is soft, nontender, nondistended. Positive bowel sounds. Extremities: Positive 2+ pitting edema with chronic venous ulcers, erythema, tenderness and serous drainage. LABORATORY DATA: PLS SEE BELOW MICROBIOLOGY: Wound culture Proteus and Staphylococcus aureus, Morganella. Staphylococcus aureus is sensitive to tetracycline. Morganella and Proteus are both sensitive to Levaquin. ASSESSMENT AND PLAN: This is a 63-year-old female with history of psoriasis, eczema, anxiety, depression, prior tonsillectomy has had several-month history of lower extremity serous and purulent drainage with self-debridement with scissors and wrapping her legs in plastic bags at home and had seen Dr. Cosme, a local owner operator truck driver from [place], phone number [phone], was diagnosed with cellulitis and sent to the emergency room (ER) due to concerns for acute infection after seeing maggots coming out of the wounds. Patient was admitted and placed on intravenous Zosyn. Culture results with Morganella and Proteus as well as Staphylococcus aureus sensitive to Levaquin and tetracycline. IMPRESSION: 1. Bilateral lower extremity cellulitis in the setting of chronic venous insufficiency ulcers. Patient had been on IV Zosyn now transitioned to Levaquin and tetracycline. CT was concerning for fasciitis. Patient was evaluated by Dr. Asher; recommended continued wound care as outpatient and continue antibiotics and wound care during the hospital stay.pt is medically stable for hospital disc harge. Antibiotic coverage have been de-escalated according to sensitivity results, and pt has not had a decompensation in her clinical status. She is awaiting physical therapy clearance prior to dc home. may need placement. will consult PFS. 2. History of psoriasis and eczema. Patient has an appointment with Dr. Vasquez, Dermatology as outpatient, per recommendations by Dr. Matamoros, during this admission, Dr. Vasquez did not feel that the patient required an inpatient consultation as well as a biopsy which all can be done as outpatient. He agreed with discontinuation of steroids as this does not appear to be a pyoderma gangrenosum and agreed with continuing antibiotics, wound care consult Dr. Ba's referral and to followup with him in the office. 3. Anxiety/depression. Resumed on home medications. 4. Deep venous thrombosis (DVT) prophylaxis with subcu heparin. 5. Pain control. Patient prefers to be on [id number] medications and disposition: change to [facility]C /SNF status. medically stable for hospital discharge, but has not passed HSE and not safe to dc home per last note. VS, I&O, 24H, Fishbone Vital Signs/I&O Vital Signs Date Time Temp Pulse Resp B/P (MAP) Pulse Ox O2 Delivery O2 Flow Rate FiO2 08/18/19 12:29 18 08/18/19 05:00 97.7 69 123/74 (90) 97 Room Air 08/15/19 05:45 1.0 I&O- Last 24 Hours up to 6 AM 08/18/19 06:00 Intake Total 1360 ml Output Total 1000 ml Balance 360 ml Laboratory Data 24H LABS Laboratory Tests 2 08/18/19 07:35: Immature Granulocyte % (Auto) 2.1, Neutrophils (%) (Auto) 77.3H, Lymphocytes (%) (Auto) 10.4L, Monocytes (%) (Auto) 5.5H, Eosinophils (%) (Auto) 4.0H, Basophils (%) (Auto) 0.7, Neutrophils # (Auto) 9.4H, Lymphocytes # (Auto) 1.3L, Monocytes # (Auto) 0.7, Eosinophils # (Auto) 0.5, Basophils # (Auto) 0.1, Nucleated Red Blood Cells % (auto) 0.0, Erythrocyte Sedimentation Rate 97H, Anion Gap 5L, Glomerular Filtration Rate > 60.0, Calcium Level 9.5#, C-Reactive Protein, Quantitative 3.31H CBC/BMP Laboratory Tests 08/18/19 07:35 Microbiology Microbiology 08/13/19 Gram Stain - Final, Complete 08/13/19 Wound Culture - Final, Complete Morganella Morganii Ssp [place] Proteus Penneri Staphylococcus Aureus 08/13/19 Blood Culture - Preliminary, Resulted No Growth after 72 hours. All specime... 08/13/19 Blood Culture - Preliminary, Resulted No Growth after 72 hours. All specime... RAO PEREZ MD Aug 18, 2019 14:28
[2019-08-18 21:41] VITALS: BP 150/89
[2019-08-19] MEDS: LevoFLOXacin 750 MG TABLET PO SCH (05:54)
[2019-08-19] MEDS: HEPARIN SOD (PORCINE) 5000 UNITS/ML VIAL (J1644 PER 1000UNITS) SC SCH ×3 (05:54→21:22)
[2019-08-19] MEDS: traMADol 50 MG TAB PO SCH ×3 (05:54→18:46)
[2019-08-19 06:17] VITALS: BP 122/82
[2019-08-19] MEDS: DOXYCYCLINE HYCLATE 100 MG TAB PO SCH ×2 (08:38→21:22)
[2019-08-19] MEDS: DOCUSATE SODIUM 100 MG CAP PO SCH ×2 (08:38→21:22)
[2019-08-19] MEDS: ACETAMINOPHEN 500 MG TAB PO SCH ×2 (08:39→21:23)
[2019-08-19] MEDS: IBUPROFEN 400 MG TAB PO SCH ×3 (08:39→18:45)
[2019-08-20 00:06] LABS: ANCA-ATYPICAL <1:20 titer (Neg:<1:20); ANTINUCLEAR ANTIBODIES DIRECT Negative (Negative); CYTOPLASMIC NEUTROP AB ANCA-C <1:20 titer (Neg:<1:20); HEPATITIS B CORE ANTIBODY IGG Negative (Negative); PERINUCLEAR AB ANCA-P <1:20 titer (Neg:<1:20)
[2019-08-20] MEDS: traMADol 50 MG TAB PO SCH ×5 (00:31→23:38)
[2019-08-20] MEDS: LevoFLOXacin 750 MG TABLET PO SCH (05:04)
[2019-08-20] MEDS: HEPARIN SOD (PORCINE) 5000 UNITS/ML VIAL (J1644 PER 1000UNITS) SC SCH ×3 (05:05→20:54)
[2019-08-20 06:00] VITALS: BP 120/78
[2019-08-20] MEDS: DOXYCYCLINE HYCLATE 100 MG TAB PO SCH ×2 (09:04→20:53)
[2019-08-20] MEDS: DOCUSATE SODIUM 100 MG CAP PO SCH ×2 (09:04→20:53)
[2019-08-20] MEDS: ACETAMINOPHEN 500 MG TAB PO SCH ×2 (09:04→20:53)
[2019-08-20] MEDS: IBUPROFEN 400 MG TAB PO SCH ×3 (09:05→17:53)
[2019-08-20 11:18] LABS: DRVV SCREEN 43.6 SEC
[2019-08-20 11:29] LABS: PTT LUPUS TYPE ANTICOAG SCREEN 1.1 (0-1.2)
--- NOTE | 2019-08-20 12:31 | IPNPDOC ---
Subjective Date Seen The patient was seen on 08/20/19. Subjective Chief Complaint/HPI Marichuy is sitting in chair and doing ok. She's moving her bowels. Objective Physical Examination General Exam: Positive: Alert, Cooperative, No Acute Distress Neck Exam: Positive: Supple Chest Exam: Positive: Clear to auscultation Abdomen Exam: Positive: Normal bowel sounds Extremity Exam: Positive: Other (LE are wrapped); Negative: Cyanosis Neuro Exam: Positive: Normal Speech Psych Exam: Positive: Mental status NL Assessment /Plan Assessment # Bilateral LE ulcers with cellulitis - continue oral doxy + levaquin - awaiting PT clearance for home vs. rehab Plan/VTE VTE Prophylaxis Ordered?: Yes (hep sq) VTE Exclusion Mechanical Proph: N/A:VTE Prophy Ordered VTE Exclusion Pharmacological: N/A:VTE Prophy Ordered VS, I&O, 24H, Fishbone Vital Signs/I&O Vital Signs Date Time Temp Pulse Resp B/P (MAP) Pulse Ox O2 Delivery O2 Flow Rate FiO2 08/20/19 06:00 98.3 74 17 120/78 (92) 96 Room Air 08/15/19 05:45 1.0 I&O- Last 24 Hours up to 6 AM 08/20/19 06:00 Intake Total 240 ml Output Total 0 ml Balance 240 ml Laboratory Data Microbiology Microbiology 08/13/19 Gram Stain - Final, Complete 08/13/19 Wound Culture - Final, Complete Morganella Morganii Ssp [place] Proteus Penneri Staphylococcus Aureus 08/13/19 Blood Culture - Final, Complete NO GROWTH AFTER 5 DAYS 08/13/19 Blood Culture - Final, Complete NO GROWTH AFTER 5 DAYS TENISHA CARMONA MD Aug 20, 2019 12:31
[2019-08-20] MEDS: ACETAMINOPHEN TAB 650MG DOSE (2X325MG) PO PRN (15:50)
[2019-08-21] MEDS: LevoFLOXacin 750 MG TABLET PO SCH (05:11)
[2019-08-21] MEDS: traMADol 50 MG TAB PO SCH ×2 (05:11→12:26)
[2019-08-21] MEDS: HEPARIN SOD (PORCINE) 5000 UNITS/ML VIAL (J1644 PER 1000UNITS) SC SCH ×2 (05:11→13:34)
[2019-08-21 06:00] VITALS: BP 127/78
[2019-08-21] MEDS: IBUPROFEN 400 MG TAB PO SCH ×2 (08:22→12:34)
[2019-08-21 08:46] VITALS: BP 121/76
[2019-08-21] MEDS: DOXYCYCLINE HYCLATE 100 MG TAB PO SCH (09:16)
[2019-08-21] MEDS: ACETAMINOPHEN 500 MG TAB PO SCH (09:18)
[2019-08-21] MEDS: DOCUSATE SODIUM 100 MG CAP PO SCH (09:18)
--- NOTE | 2019-08-21 12:25 | IPNPDOC ---
Subjective Date Seen The patient was seen on 08/21/19. Subjective Chief Complaint/HPI developed rash on face and elbow with use of medicated wipe Objective Physical Examination General Exam: Positive: Alert, Cooperative, No Acute Distress Neck Exam: Positive: Supple Chest Exam: Positive: Clear to auscultation Abdomen Exam: Positive: Normal bowel sounds Extremity Exam: Positive: Other (LE are wrapped); Negative: Cyanosis Skin Exam: Positive: Rash (contact dermatitis on face and elbow) Neuro Exam: Positive: Normal Speech Psych Exam: Positive: Mental status NL Assessment /Plan Assessment # Bilateral LE ulcers with cellulitis - continue oral doxy + levaquin - discharge to SNF today # Contact dermatitis - steroid cream prn daily Plan/VTE VTE Prophylaxis Ordered?: Yes (hep sq) VTE Exclusion Mechanical Proph: N/A:VTE Prophy Ordered VTE Exclusion Pharmacological: N/A:VTE Prophy Ordered VS, I&O, 24H, Fishbone Vital Signs/I&O Vital Signs Date Time Temp Pulse Resp B/P (MAP) Pulse Ox O2 Delivery O2 Flow Rate FiO2 08/21/19 08:46 97.4 83 20 121/76 (91) 95 Room Air 08/15/19 05:45 1.0 I&O- Last 24 Hours up to 6 AM 08/21/19 06:00 Intake Total 1980 ml Output Total 0 ml Balance 1980 ml Laboratory Data Microbiology Microbiology 08/13/19 Gram Stain - Final, Complete 08/13/19 Wound Culture - Final, Complete Morganella Morganii Ssp [place] Proteus Penneri Staphylococcus Aureus 08/13/19 Blood Culture - Final, Complete NO GROWTH AFTER 5 DAYS 08/13/19 Blood Culture - Final, Complete NO GROWTH AFTER 5 DAYS TENISHA CARMONA MD Aug 21, 2019 12:23
[2019-08-23 00:07] LABS: ANTINUCLEAR ANTIBODIES DIRECT Negative (Negative); G6PD2 3.77 x10E6/uL (3.77-5.28); G6PD3 351 (146-376)
--- NOTE | 2019-08-26 19:27 | DSES ---
DATE OF ADMISSION: 08/13/2019 DATE OF DISCHARGE: 08/21/2019 DISCHARGE DIAGNOSES: 1. Bilateral lower extremity infected ulcers with associated cellulitis. 2. Contact dermatitis. 3. History of psoriasis and eczema. PROCEDURES PERFORMED DURING THIS HOSPITALIZATION: None. CONSULTANTS ON THE CASE: 1. Dr. Asher of general surgery. 2. Dr. Ba of wound care. DISPOSITION: Patient is discharged to local [facility] facility. DISCHARGE INSTRUCTIONS: Patient is instructed to follow up with Dr. Ba in one week and dermatology in approximately one week, as well as her primary care provider (PCP) in one week's time. CONDITION AT DISCHARGE: Improved. DISCHARGE MEDICATIONS: - doxycycline 100 mg twice a day for an additional five days - Levaquin 750 mg daily for five days - tramadol 50 mg every 6 hours for 10 days - ibuprofen 400 mg before meals 10 days and then Tylenol 1000 mg twice a day for 10 days. PERTINENT LABORATORIES: Wound cultures grew Morganella morganii, Proteus penneri, as well as methicillin-sensitive Staphylococcus aureus. Blood cultures times two showed no growth. White blood cell count was 12.2, with a hemoglobin of 10.2, hematocrit 34.6 and a platelet count of 171,000. G6PD was 351. RBC G6PD was 3.7. Erythrocyte sedimentation rate was 85. Rheumatoid factor slightly elevated at 27.6. KASHIF screen was negative. P-ANCA antibody was less than 1 in 20 dilution. C-ANCA antibody was less than 1 in 20 dilution. An atypical ANCA was less than 1 in 20 dilution. KASHIF screen was negative. Hepatitis A, B as well as C antibodies were negative. HOSPITAL COURSE: Ms. Bermeo is a 63-year-old woman who has chronic lower extremity wounds with history of psoriasis and eczema. She had difficulty in arranging followup with dermatology as an outpatient and apparently had been nursing her wounds at home, but to poor effect. She had presented to the bean picker machine operator's office and was found to have infected lower extremity wounds with visible maggots in her wounds per the dermatology staff. She was transported to the emergency room whereby she was started on intravenous (IV) Zosyn and admitted to the hospitalist service. There was concern that she could have pyoderma gangrenosum, so she was also started on IV steroids. CT of the lower extremity was obtained, which was concerning for necrotizing fascitis. A consult was obtained from Dr. Asher, who did not feel that the patient had necrotizing fascitis and that she just needed vigorous wound care. Dr. Ba was consulted and made recommendations. These were implemented. Patient was discontinued from steroids, as it was not felt that she had a vasculitis process. Her wound cultures grew Morganella and Proteus, as well as methicillin-sensitive Staphylococcus aureus. She was downgraded from Zosyn to Levaquin and tetracycline, based on sensitivities. She was evaluated by physical therapy (PT) and occupational therapy (OT) and deemed a candidate for rehabilitation and was discharged to the [facility] in stable condition,. A total of 30 minutes was spent completing all discharge paperwork.
== END 2019-08-21 13:55 | DRG 383 ==
LOC: M ED 14:57 → M ED INP 19:36 → ENRESERV 20:19 → M MS5PR 21:05
PROVIDERS: ADMIT Internal Medicine; ATTEND Internal Medicine
DX: L03.115 Cellulitis of right lower limb (principal); I87.2 Venous insufficiency (chronic) (peripheral); F32.9 Major depressive disorder, single episode, unspecified; L08.0 Pyoderma; E86.0 Dehydration; L40.9 Psoriasis, unspecified; R00.0 Tachycardia, unspecified; D63.8 Anemia in other chronic diseases classified elsewhere; E66.9 Obesity, unspecified; Z68.31 Body mass index [BMI] 31.0-31.9, adult; Z79.899 Other long term (current) drug therapy; Z88.5 Allergy status to narcotic agent; F41.9 Anxiety disorder, unspecified; B95.61 Methicillin susceptible Staphylococcus aureus infection as the cause of diseases classified elsewhere; B96.4 Proteus (mirabilis) (morganii) as the cause of diseases classified elsewhere; L25.9 Unspecified contact dermatitis, unspecified cause; L03.116 Cellulitis of left lower limb

== ENCOUNTER → 2019-08-29 | Outpatient (REF) | payer OTHER ==
[~2019-08-29] MED LIST changes: +ACET-683 PO; +CLOB0.0548 PO; +DOXY100T PO; +IBUP40TA PO; +LEVA750T7 PO; +TRAM50TA2 PO
== END ==
LOC: M LAB REF 11:28
PROVIDERS: ATTEND Dermatology
DX: R21 Rash and other nonspecific skin eruption (principal)

== ENCOUNTER → 2019-10-01 | Outpatient (REF) | payer OTHER ==
[2019-10-01 07:08] LABS: HEMATOCRIT 29.2 % (36.0-47.0); MEAN CORPUSCULAR HEMOGLOBIN 25.8 pg (27.0-33.0); MEAN CORPUSCULAR HGB CONC 30.8 g/dl (32.0-36.5); MEAN CORPUSCULAR VOLUME 83.7 fl (80.0-96.0); PLATELET COUNT, AUTOMATED 318 10^3/uL (150-450); RED BLOOD COUNT 3.49 10^6/uL (4.00-5.40); WHITE BLOOD COUNT 5.7 10^3/uL (4.0-10.0)
[2019-10-01 07:38] LABS: ALBUMIN 3.1 GM/DL (3.2-5.2); ALT/SGPT 40 U/L (12-78); BILIRUBIN,TOTAL 0.3 MG/DL (0.2-1.0); BLOOD UREA NITROGEN 29 MG/DL (7-18); CALCIUM LEVEL 8.7 MG/DL (8.8-10.2); CARBON DIOXIDE LEVEL 31 MEQ/L (21-32); CHLORIDE LEVEL 109 MEQ/L (98-107); CREATININE FOR GFR 0.66 MG/DL (0.55-1.30); GLOMERULAR FILTRATION RATE > 60.0 (>45); GLUCOSE, FASTING 92 MG/DL (70-100); POTASSIUM SERUM 4.1 MEQ/L (3.5-5.1); SODIUM LEVEL 141 MEQ/L (136-145); TOTAL PROTEIN 6.9 GM/DL (6.4-8.2)
== END ==
LOC: SKLAB4 10:18
PROVIDERS: ATTEND Internal Medicine
DX: D64.9 Anemia, unspecified (principal)

== ENCOUNTER 2021-10-03 15:13 | Inpatient (IN) | payer MEDICARE, OTHER ==
[2021-10-03] VITALS (8 sets, daily range): BP systolic 120–159; BP diastolic 67–90
[~2021-10-03] VITALS: Ht 167.6 cm; Wt 97.1 kg
[~2021-10-03 15:13] MED LIST changes: +AMOX875T2 PO; +BACI1CAP PO; +IBUP1TAB5 PO; -IBUP40TA PO; +PERCOCET PO; +SENO8.6T10 PO
[2021-10-03 16:44] LABS: BASO % 0.3 % (0.0-1.0); EOS % 0.5 % (0.0-3.0); LYMPH % 15.6 % (24.0-44.0); MEAN CORPUSCULAR HGB CONC 24.8 g/dl (32.0-36.5); MEAN CORPUSCULAR VOLUME 52.5 fl (80.0-96.0); MONO # 0.6 10^3/uL (0.0-0.8); MONO % 9.3 % (2.0-8.0); NEUTROPHILS # 4.9 10^3/uL (1.5-8.5); NEUTROPHILS % 73.1 % (36.0-66.0); RED BLOOD COUNT 2.61 10^6/uL (4.00-5.40); WHITE BLOOD COUNT 6.7 10^3/uL (4.0-10.0)
[2021-10-03 16:45] LABS: HEMATOCRIT 13.7 % (36.0-47.0)
[2021-10-03 16:46] LABS: HEMOGLOBIN 3.4 g/dl (12.0-15.5); PLATELET COUNT, AUTOMATED 487 10^3/uL (150-450)
[2021-10-03 16:54] LABS: ALBUMIN 3.2 GM/DL (3.2-5.2); BILIRUBIN,DIRECT 0.3 MG/DL (0.0-0.2); BILIRUBIN,TOTAL 0.7 MG/DL (0.2-1.0); CREATININE FOR GFR 1.37 MG/DL (0.55-1.30); GLOMERULAR FILTRATION RATE 41.2 (>45); POTASSIUM SERUM 3.9 MEQ/L (3.5-5.1); TOTAL PROTEIN 7.6 GM/DL (6.4-8.2)
[2021-10-03 17:26] LABS: RSV AMPLIFICATION NEGATIVE (NEGATIVE)
[2021-10-03] MEDS ORDERED: HOME MED LIST COMPLETE! XX SCH (17:50)
[2021-10-03 18:13] LABS: PERCENT SATURATION 1.6 % (13.2-45.0)
[2021-10-04] VITALS (13 sets, daily range): BP systolic 99–163; BP diastolic 57–89
[2021-10-04 07:45] LABS: ALBUMIN 2.9 GM/DL (3.2-5.2); CALCIUM LEVEL 8.8 MG/DL (8.8-10.2); CREATININE FOR GFR 1.08 MG/DL (0.55-1.30); GLOMERULAR FILTRATION RATE 54.2 (>45); MAGNESIUM LEVEL 2.3 MG/DL (1.8-2.4); POTASSIUM SERUM 3.6 MEQ/L (3.5-5.1); TOTAL PROTEIN 7.1 GM/DL (6.4-8.2)
[2021-10-04 08:46] LABS: BASO # 0.1 10^3/uL (0.0-0.2); BASO % 0.8 % (0.0-1.0); EOS # 0.1 10^3/uL (0.0-0.5); EOS % 1.1 % (0.0-3.0); LYMPH # 1.1 10^3/uL (1.5-5.0); LYMPH % 17.5 % (24.0-44.0); MEAN CORPUSCULAR HEMOGLOBIN 16.8 pg (27.0-33.0); MEAN CORPUSCULAR VOLUME 62.4 fl (80.0-96.0); MONO # 0.8 10^3/uL (0.0-0.8); MONO % 12.8 % (2.0-8.0); NEUTROPHILS # 4.2 10^3/uL (1.5-8.5); NEUTROPHILS % 65.8 % (36.0-66.0); PLATELET COUNT, AUTOMATED 430 10^3/uL (150-450); RED BLOOD COUNT 3.03 10^6/uL (4.00-5.40); WHITE BLOOD COUNT 6.4 10^3/uL (4.0-10.0)
[2021-10-04 08:49] LABS: HEMOGLOBIN 5.1 g/dl (12.0-15.5)
[2021-10-04 08:51] LABS: HEMATOCRIT 18.9 % (36.0-47.0)
[2021-10-04] MEDS ORDERED: IRON SUCROSE 100MG 5ML VIAL (J1756 PER 1MG) IV SCH (09:00)
[2021-10-04] MEDS ORDERED: FUROSEMIDE 20MG/2ML VIAL (J1940) IV ONE ×2 (09:00→17:05)
[2021-10-04 09:17] LABS: HYPOCHROMASIA 2+; POIKILOCYTOSIS 3+
[2021-10-04 09:18] LABS: ANISOCYTOSIS 2+; OVALOCYTES 2+; SCHISTOCYTES 2+; TARGET CELLS 1+; TEAR DROP CELLS 2+
[2021-10-04 09:19] LABS: PLATELET ESTIMATE NORMAL (NORMAL)
[2021-10-04] MEDS: IRON SUCROSE 200 MG in NS 100 ML OVER 1 HR IV SCH (09:46)
[2021-10-04] MEDS ORDERED: NYSTATIN 100,000 UNITS/GM TOPICAL PWD 15 GM TOP PRN (10:20)
[2021-10-04] MEDS: PANTOPRAZOLE 40MG TAB (PROTONIX) PO SCH (10:49)
[2021-10-04 11:27] LABS: CK-MB VALUE MASS 3.6 NG/ML (<3.6); MB/CK RELATIVE INDEX 3.46 (< OR =4)
[2021-10-04 12:16] LABS: HEPATITIS B CORE ANTIBODY IGM NEGATIVE (NEGATIVE); HEPATITIS B SURFACE ANTIGEN NEGATIVE (NEGATIVE); HEPATITIS C VIRUS ABY INDEX 0.2 INDEX (<0.8)
[2021-10-04 16:42] LABS: CK-MB VALUE MASS 2.9 NG/ML (<3.6); MB/CK RELATIVE INDEX 3.12 (< OR =4)
[2021-10-04 22:03] LABS: CK-MB VALUE MASS 2.6 NG/ML (<3.6); MB/CK RELATIVE INDEX 2.8 (< OR =4)
[2021-10-04 22:09] LABS: BASO # 0.1 10^3/uL (0.0-0.2); BASO % 0.9 % (0.0-1.0); EOS # 0.1 10^3/uL (0.0-0.5); EOS % 1.4 % (0.0-3.0); HEMATOCRIT 22.1 % (36.0-47.0); HEMOGLOBIN 6.7 g/dl (12.0-15.5); LYMPH # 1.1 10^3/uL (1.5-5.0); LYMPH % 15.4 % (24.0-44.0); MEAN CORPUSCULAR HEMOGLOBIN 19.5 pg (27.0-33.0); MEAN CORPUSCULAR HGB CONC 30.3 g/dl (32.0-36.5); MEAN CORPUSCULAR VOLUME 64.2 fl (80.0-96.0); MONO # 0.8 10^3/uL (0.0-0.8); NEUTROPHILS # 4.7 10^3/uL (1.5-8.5); NEUTROPHILS % 66.3 % (36.0-66.0); PLATELET COUNT, AUTOMATED 360 10^3/uL (150-450); RED BLOOD COUNT 3.44 10^6/uL (4.00-5.40)
[2021-10-05] VITALS (8 sets, daily range): BP systolic 124–145; BP diastolic 60–85
[2021-10-05 08:43] LABS: HEMATOCRIT 27.2 % (36.0-47.0); HEMOGLOBIN 8.1 g/dl (12.0-15.5); MEAN CORPUSCULAR HEMOGLOBIN 20.4 pg (27.0-33.0); MEAN CORPUSCULAR HGB CONC 29.8 g/dl (32.0-36.5); MEAN CORPUSCULAR VOLUME 68.3 fl (80.0-96.0); PLATELET COUNT, AUTOMATED 339 10^3/uL (150-450); RED BLOOD COUNT 3.98 10^6/uL (4.00-5.40); WHITE BLOOD COUNT 8.3 10^3/uL (4.0-10.0)
[2021-10-05] MEDS ORDERED: SENOKOT S TAB PO PRN (09:00)
[2021-10-05 09:09] LABS: ALBUMIN 2.9 GM/DL (3.2-5.2); ALT/SGPT 59 U/L (12-78); BILIRUBIN,DIRECT 0.4 MG/DL (0.0-0.2); BLOOD UREA NITROGEN 26 MG/DL (7-18); CALCIUM LEVEL 8.9 MG/DL (8.8-10.2); CARBON DIOXIDE LEVEL 27 MEQ/L (21-32); CHLORIDE LEVEL 109 MEQ/L (98-107); CREATININE FOR GFR 0.88 MG/DL (0.55-1.30); GLOMERULAR FILTRATION RATE > 60.0 (>45); GLUCOSE, FASTING 116 MG/DL (70-100); MAGNESIUM LEVEL 1.9 MG/DL (1.8-2.4); POTASSIUM SERUM 3.8 MEQ/L (3.5-5.1); SODIUM LEVEL 141 MEQ/L (136-145); TOTAL PROTEIN 7.4 GM/DL (6.4-8.2)
[2021-10-05] MEDS: PANTOPRAZOLE 40MG TAB (PROTONIX) PO SCH (09:29)
[2021-10-05 09:42] LABS: EOSINOPHILS 3 % (0-3); LYMPHOCYTES 24 % (16-44); MONOCYTES 8 % (0-5); NEUTROPHILS 65 % (28-66); PLATELET ESTIMATE NORMAL (NORMAL)
[2021-10-05 09:43] LABS: ANISOCYTOSIS 2+; HYPOCHROMASIA 2+; POIKILOCYTOSIS 3+; TEAR DROP CELLS 1+
[2021-10-05 09:45] LABS: SCHISTOCYTES 2+
[2021-10-05] MEDS ORDERED: FUROSEMIDE 40MG/4ML VIAL (J1940) IV ONE (09:50)
[2021-10-05] MEDS ORDERED: MOM 30ML SUSPENSION UDC PO PRN (10:15)
[2021-10-05] MEDS ORDERED: MIRALAX *UNIT DOSE* 17GM PACKET PO PRN (10:15)
[2021-10-06] VITALS: BP 124/70
[2021-10-06 04:00] VITALS: BP 129/71
[2021-10-06 06:05] LABS: BASO # 0.1 10^3/uL (0.0-0.2); BASO % 1.1 % (0.0-1.0); EOS # 0.2 10^3/uL (0.0-0.5); EOS % 2.4 % (0.0-3.0); HEMATOCRIT 27.3 % (36.0-47.0); HEMOGLOBIN 7.9 g/dl (12.0-15.5); LYMPH # 1.7 10^3/uL (1.5-5.0); LYMPH % 18.6 % (24.0-44.0); MEAN CORPUSCULAR HEMOGLOBIN 20.3 pg (27.0-33.0); MEAN CORPUSCULAR HGB CONC 28.9 g/dl (32.0-36.5); MONO # 1.2 10^3/uL (0.0-0.8); MONO % 13.4 % (2.0-8.0); NEUTROPHILS # 5.5 10^3/uL (1.5-8.5); NEUTROPHILS % 59.5 % (36.0-66.0); PLATELET COUNT, AUTOMATED 315 10^3/uL (150-450); WHITE BLOOD COUNT 9.2 10^3/uL (4.0-10.0)
[2021-10-06 06:26] LABS: ALBUMIN 2.7 GM/DL (3.2-5.2); ALT/SGPT 51 U/L (12-78); BILIRUBIN,DIRECT 0.2 MG/DL (0.0-0.2); BILIRUBIN,TOTAL 0.7 MG/DL (0.2-1.0); BLOOD UREA NITROGEN 22 MG/DL (7-18); CALCIUM LEVEL 8.3 MG/DL (8.8-10.2); CARBON DIOXIDE LEVEL 28 MEQ/L (21-32); CHLORIDE LEVEL 110 MEQ/L (98-107); CREATININE FOR GFR 0.78 MG/DL (0.55-1.30); GLOMERULAR FILTRATION RATE > 60.0 (>45); GLUCOSE, FASTING 86 MG/DL (70-100); MAGNESIUM LEVEL 1.9 MG/DL (1.8-2.4); POTASSIUM SERUM 3.6 MEQ/L (3.5-5.1); SODIUM LEVEL 143 MEQ/L (136-145)
[2021-10-06 07:27] LABS: HYPOCHROMASIA 2+; MICROCYTOSIS 1+; OVALOCYTES 2+
[2021-10-06 07:28] LABS: POIKILOCYTOSIS 2+; SCHISTOCYTES 1+
[2021-10-06 07:29] LABS: ANISOCYTOSIS 3+; PLATELET ESTIMATE NORMAL (NORMAL)
[2021-10-06] MEDS ORDERED: BISACODYL 10 MG SUPP PR ONE (08:15)
[2021-10-06 08:38] VITALS: BP 156/84
[2021-10-06] MEDS: IRON SUCROSE 200 MG in NS 100 ML OVER 1 HR IV SCH (09:00)
[2021-10-06] MEDS: FUROSEMIDE 40 MG TAB PO SCH ×2 (09:00→17:14)
[2021-10-06] MEDS: PANTOPRAZOLE 40MG TAB (PROTONIX) PO SCH (09:00)
[2021-10-06 16:00] VITALS: BP 143/71
[2021-10-06 20:00] VITALS: BP 117/60
[2021-10-07 05:59] LABS: HEMATOCRIT 29.6 % (36.0-47.0); HEMOGLOBIN 8.4 g/dl (12.0-15.5); MEAN CORPUSCULAR HEMOGLOBIN 20.8 pg (27.0-33.0); MEAN CORPUSCULAR HGB CONC 28.4 g/dl (32.0-36.5); MEAN CORPUSCULAR VOLUME 73.3 fl (80.0-96.0); PLATELET COUNT, AUTOMATED 345 10^3/uL (150-450); RED BLOOD COUNT 4.04 10^6/uL (4.00-5.40); WHITE BLOOD COUNT 8.4 10^3/uL (4.0-10.0)
[2021-10-07 06:14] LABS: ALBUMIN 2.9 GM/DL (3.2-5.2); ALT/SGPT 51 U/L (12-78); BILIRUBIN,DIRECT 0.2 MG/DL (0.0-0.2); BILIRUBIN,TOTAL 0.6 MG/DL (0.2-1.0); BLOOD UREA NITROGEN 20 MG/DL (7-18); CALCIUM LEVEL 8.4 MG/DL (8.8-10.2); CARBON DIOXIDE LEVEL 28 MEQ/L (21-32); CHLORIDE LEVEL 108 MEQ/L (98-107); CREATININE FOR GFR 0.88 MG/DL (0.55-1.30); GLOMERULAR FILTRATION RATE > 60.0 (>45); GLUCOSE, FASTING 97 MG/DL (70-100); MAGNESIUM LEVEL 1.6 MG/DL (1.8-2.4); POTASSIUM SERUM 3.7 MEQ/L (3.5-5.1); SODIUM LEVEL 141 MEQ/L (136-145); TOTAL PROTEIN 7.6 GM/DL (6.4-8.2)
[2021-10-07 06:38] LABS: BASOPHILS 1 % (0-1); EOSINOPHILS 3 % (0-3); LYMPHOCYTES 22 % (16-44); METAMYELOCYTES 1 % (0-0); MONOCYTES 3 % (0-5); MYELOCYTES 1 % (0-0); NEUTROPHILS 69 % (28-66)
[2021-10-07 06:39] LABS: ANISOCYTOSIS 3+; PLATELET ESTIMATE NORMAL (NORMAL); POIKILOCYTOSIS 2+
[2021-10-07] MEDS: MAG SULF 1GM/100ML (MAG RUN) 1 GM in IV 1 EA IV SCH ×2 (08:00→09:00)
[2021-10-07 08:07] VITALS: BP 133/61
[2021-10-07] MEDS: FUROSEMIDE 40 MG TAB PO SCH (09:00)
[2021-10-07] MEDS: PANTOPRAZOLE 40MG TAB (PROTONIX) PO SCH (09:00)
[2021-10-07] MEDS ORDERED: FURO40TA2 PO (09:39)
[2021-10-07] MEDS ORDERED: PANT40TA29 PO (09:39)
[2021-10-07] MEDS ORDERED: FERR325T3 PO (09:39)
[2021-10-07] MEDS ORDERED: MIRA1POW3 PO (09:39)
== END 2021-10-07 15:47 | disposition home health service (06) | DRG 812 ==
LOC: M ED 15:13 → M ED INP 21:25 → ENRESERV 10-04 01:35 → M MS5PR 10-04 03:00 → M PCU 10-04 13:47
PROVIDERS: ADMIT Internal Medicine; ATTEND Internal Medicine
PROC: 30233N1 Transfusion of Nonautologous Red Blood Cells into Peripheral Vein, Percutaneous Approach (ICD-10-PCS; principal; 2021-10-03)
DX: D50.9 Iron deficiency anemia, unspecified (principal); N17.9 Acute kidney failure, unspecified; E87.2 Acidosis; L88 Pyoderma gangrenosum; I50.9 Heart failure, unspecified; E66.01 Morbid (severe) obesity due to excess calories; I89.0 Lymphedema, not elsewhere classified; R74.01 Elevation of levels of liver transaminase levels; L40.9 Psoriasis, unspecified; F32.A Depression, unspecified; F41.9 Anxiety disorder, unspecified; I87.2 Venous insufficiency (chronic) (peripheral); Z88.5 Allergy status to narcotic agent; Z68.34 Body mass index [BMI] 34.0-34.9, adult

== ENCOUNTER → 2021-10-14 | Outpatient (CLI) | payer OTHER ==
[~2021-10-14] MED LIST changes: +FERR325T3 PO; +FURO40TA2 PO; +MIRA1POW3 PO; +PANT40TA29 PO
[2021-10-14 13:10] LABS: BASO # 0.1 10^3/uL (0.0-0.2); BASO % 1.5 % (0.0-1.0); EOS # 0.2 10^3/uL (0.0-0.5); EOS % 3.5 % (0.0-3.0); HEMATOCRIT 32.4 % (36.0-47.0); HEMOGLOBIN 9.2 g/dl (12.0-15.5); LYMPH % 13.8 % (24.0-44.0); MEAN CORPUSCULAR HEMOGLOBIN 22.2 pg (27.0-33.0); MEAN CORPUSCULAR HGB CONC 28.4 g/dl (32.0-36.5); MEAN CORPUSCULAR VOLUME 78.3 fl (80.0-96.0); MONO # 0.7 10^3/uL (0.0-0.8); MONO % 9.6 % (2.0-8.0); NEUTROPHILS # 4.9 10^3/uL (1.5-8.5); NEUTROPHILS % 71.2 % (36.0-66.0); PLATELET COUNT, AUTOMATED 449 10^3/uL (150-450); RED BLOOD COUNT 4.14 10^6/uL (4.00-5.40); WHITE BLOOD COUNT 6.9 10^3/uL (4.0-10.0)
[2021-10-14 13:42] LABS: ALBUMIN 3.3 GM/DL (3.2-5.2); ALT/SGPT 45 U/L (12-78); BILIRUBIN,TOTAL 0.5 MG/DL (0.2-1.0); BLOOD UREA NITROGEN 13 MG/DL (7-18); CALCIUM LEVEL 9.5 MG/DL (8.8-10.2); CARBON DIOXIDE LEVEL 27 MEQ/L (21-32); CHLORIDE LEVEL 111 MEQ/L (98-107); CREATININE FOR GFR 0.87 MG/DL (0.55-1.30); FREE T4 1.09 NG/DL (0.76-1.46); GLOMERULAR FILTRATION RATE > 60.0 (>45); GLUCOSE, FASTING 80 MG/DL (70-100); POTASSIUM SERUM 4.4 MEQ/L (3.5-5.1); SODIUM LEVEL 143 MEQ/L (136-145); TOTAL PROTEIN 8.2 GM/DL (6.4-8.2)
[2021-10-14 14:00] LABS: MICROCYTOSIS 1+; PLATELET ESTIMATE NORMAL (NORMAL); POIKILOCYTOSIS 2+
[2021-10-14 14:01] LABS: HYPOCHROMASIA 1+; OVALOCYTES 2+
[2021-10-14 14:02] LABS: ANISOCYTOSIS 3+
[2021-10-14 14:03] LABS: SCHISTOCYTES 1+
== END ==
LOC: M PLALAB 10:26
PROVIDERS: ATTEND Physician Assistant Medical
DX: N17.9 Acute kidney failure, unspecified (principal)